=== PATIENT | female | born 2000 | race Hispanic/Latino ===

== ENCOUNTER 2018-01-07 23:09 | Emergency (ER) | payer SELFPAY ==
[2018-01-08] MEDS ORDERED: Sodium Chloride 0.9% 1,000 ML IV STA (00:29)
[2018-01-08 00:39] VITALS: TEMP 97.9; BMI 18.6
--- NOTE | 2018-01-08 00:43 | ED PDOC ---
Arrival/HPI <Jose Sesay - Last Filed: 01/08/18 01:47> - General Historian: Patient, Family - History of Present Illness Time/Duration: 1-3 hours Symptom Onset: Sudden Symptom Course: Unchanged Quality: Other (dizziness) Severity Level: 8 Activities at Onset: Rest Context: Sitting <Giuseppe Velazquez - Last Filed: 01/08/18 04:12> - General Chief Complaint: Dizziness/Lightheaded Time Seen by Provider: 01/07/18 23:42 - History of Present Illness Narrative History of Present Illness (Text): 01/08/18 00:22 CC: Dizziness HPI: Ms. Raymond is a 17 year old female with no past medical history (patient denies) who presents with a 3 hour history of dizziness. Patient was sitting at home in a chair and suddenly felt unsteady and like the room was spinning around her. Patient admits to weakness and says she could not stand at the time , although she can now. Patient reports associated nausea and dry heaves but denies vomiting. Patient also reports being currently on second day of her menstrual period and denies current sexual activity. Patient reports her menstrual periods usually last 4 days and are not particularly heavy. Denies recent travel and sick contacts. PCP: Dr. Dumas (Giuseppe Velazquez) Past Medical History - Provider Review Nursing Documentation Reviewed: Yes - Travel History Have you recently traveled outside [place] w/in the past 3 mons?: No - Past History Past History: No Previous - Psychiatric Hx Psychophysiologic Disorder: No Hx Substance Use: No - Anesthesia Hx Anesthesia: No <Giuseppe Velazquez - Last Filed: 01/08/18 04:12> Family/Social History - Physician Review Nursing Documentation Reviewed: Yes Family/Social History: No Known Family HX Smoking Status: Never Smoked Hx Alcohol Use: No Hx Substance Use: No <Giuseppe Velazquez - Last Filed: 01/08/18 04:12> Allergies/Home Meds <Jose Sesay - Last Filed: 01/08/18 01:47> <Giuseppe Velazquez - Last Filed: 01/08/18 04:12> Allergies/Adverse Reactions: Allergies No Known Allergies Allergy (Verified 01/08/18 00:03) Home Medications: Home Meds Medication Instructions Recorded Confirmed No Known Home Med 01/08/18 01/08/18 Review of Systems - Review of Systems Constitutional: Normal Eyes: absent: Vision Changes ENT: Normal Respiratory: Normal Cardiovascular: Normal. absent: Chest Pain Gastrointestinal: Normal, Nausea. absent: Abdominal Pain, Vomiting Genitourinary Female: Normal Musculoskeletal: Normal Skin: Normal Neurological: Headache, Dizziness <SonujazzGiuseppe cotton - Last Filed: 01/08/18 04:12> Physical Exam Vital Signs Reviewed: Yes Temperature: Afebrile Blood Pressure: Normal Pulse: Regular Respiratory Rate: Normal Appearance: Positive for: Non-Toxic, Uncomfortable Pain Distress: Mild Mental Status: Positive for: Alert and Oriented X 3 - Systems Exam Head: Present: Atraumatic, Normocephalic Pupils: Present: PERRL Extroacular Muscles: Present: EOMI Conjunctiva: Present: Normal Mouth: Present: Moist Mucous Membranes Neck: Present: Normal Range of Motion Respiratory/Chest: Present: Clear to Auscultation, Good Air Exchange. No: Respiratory Distress, Accessory Muscle Use Cardiovascular: Present: Regular Rate and Rhythm, Normal S1, S2. No: Murmurs Abdomen: Present: Tenderness (epigastric), Normal Bowel Sounds. No: Distention , Peritoneal Signs, Rebound, Guarding Upper Extremity: Present: Normal Inspection Lower Extremity: Present: Normal Inspection Neurological: Present: GCS=15, CN II-XII Intact, Speech Normal Skin: Present: Warm, Dry, Normal Color Psychiatric: Present: Alert, Oriented x 3. No: Normal Insight, Normal Concentration <SonujazzGiuseppe cotton - Last Filed: 01/08/18 04:12> Vital Signs Temp Pulse Resp BP Pulse Ox 01/08/18 00:00 97.9 F 75 16 118/63 98 Medical Decision Making <Jose Sesay - Last Filed: 01/08/18 01:47> <Giuseppe Velazquez - Last Filed: 01/08/18 04:12> ED Course and Treatment: 01/08/18 01:47 A 17 year old female presents to the emergency department with a complaint of dizziness. In agreement with resident note, which includes further HPI details. Patient was seen and evaluated with resident, came up with plan and treatment together. (Jose Sesay) 01/08/18 01:00 Impression: 17 F with no past medical history presents with complaints of dizziness. Patient denies oral intake other than clear fluids recently. Plan: CBC CMP UA Lipase NS bolus EKG 01/08/18 02:02 Patient reports poor oral intake and is found eating fast food in hospital bed brought in by family. NSR @80 bpm UA shows large amount of blood, which is congruent with her present menstrual period. Blood work unremarkable. 01/08/18 03:48 Otherwise, patient reports improvement in symptoms and is ready to be discharged. Patient hemodynamically stable. Counseled patient and family regarding proper oral diet and utility of complete meals that are not fast food. Additional vitamins and minerals likely unnecessary. Recommendations are to patient's satisfactions. (Giuseppe Velazquez) - Lab Interpretations Lab Results: 01/08/18 02:11 01/08/18 02:11 Lab Results 01/08/18 02:11: Sodium 140, Potassium 3.7, Chloride 105, Carbon Dioxide 25, Anion Gap 14, BUN 12, Creatinine 0.7, Est GFR ( Amer) > 60, Est GFR (Non- Af Amer) > 60, Random Glucose 92, Calcium 9.7, Total Bilirubin 0.4, AST 25, ALT 20, Alkaline Phosphatase 48, Total Protein 7.7, Albumin 4.6, Globulin 3.1, Albumin/Globulin Ratio 1.5, Lipase 66 01/08/18 02:11: WBC 5.6, RBC 5.49, Hgb 14.6, Hct 43.8, MCV 79.8 L, MCH 26.6, MCHC 33.3, RDW 13.2, Plt Count 212, MPV 10.0, Gran % 41.6 L, Lymph % (Auto) 43.6 H, [place] % (Auto) 7.1 H, Eos % (Auto) 7.3 H, Baso % (Auto) 0.4, Gran # 2.33 , Lymph # (Auto) 2.4, [place] # (Auto) 0.4, Eos # (Auto) 0.4, Baso # (Auto) 0.02 01/08/18 00:45: Urine Color Yellow, Urine Appearance Clear, Urine pH 6.0, Ur Specific [place] 1.020, Urine Protein Negative, Urine Glucose (UA) Negative, Urine Ketones Trace H, Urine Blood Large H, Urine Nitrate Negative, Urine Bilirubin Negative, Urine Urobilinogen 0.2, Ur Leukocyte Esterase Negative, Urine RBC 20 - 25, Urine WBC 1 - 3, Ur Epithelial Cells 6 - 8 - Medication Orders Current Medication Orders: Discontinued Medications Sodium Chloride (Sodium Chloride 0.9%) 1,000 mls @ 999 mls/hr IV .[id number] STA Stop: 01/08/18 01:29 Last Admin: 01/08/18 02:29 Dose: - Scribe Statement The provider has reviewed the documentation as recorded by the Scribe <Jose Sesay - Last Filed: 01/08/18 01:47> <Giuseppe Velazquez - Last Filed: 01/08/18 04:12> - Scribe Statement Saba Robin Provider Scribe Attestation: All medical record entries made by the Scribe were at my direction and personally dictated by me. I have reviewed the chart and agree that the record accurately reflects my personal performance of the history, physical exam, medical decision making, and the department course for this patient. I have also personally directed, reviewed, and agree with the discharge instructions and disposition. (Jose Sesay) Disposition/Present on Arrival <Jose Sesay - Last Filed: 01/08/18 01:47> - Present on Arrival Any Indicators Present on Arrival: No History of DVT/PE: No History of Uncontrolled Diabetes: No Urinary Catheter: No History of Decub. Ulcer: No History Surgical Site Infection Following: None - Disposition Have Diagnosis and Disposition been Completed?: Yes Disposition Time: 03:00 Patient Plan: Discharge <Giuseppe Velazquez - Last Filed: 01/08/18 04:12> - Disposition Diagnosis: Dehydration, Poor appetite Disposition: HOME/ ROUTINE Patient Problems: Current Active Problems Problem Status Onset Dehydration Acute Poor appetite Acute Condition: IMPROVED Discharge Instructions (ExitCare): Dehydration, Adult (DC) Print Language: [place] Additional Instructions: Please follow up with your primary doctor within the week for continuity of care. Please consume full meals of protein with fruits and vegetables. Limit Fast food intake. Should symptoms worsen or reoccur, please return to nearest emergency department. FANTA [facility]AY[facility], thank you for letting us take care of you today. Your provider was Jose Sesay MD and you were treated for DIZZINESS. The emergency medical care you received today was directed at your acute symptoms. If you were prescribed any medication, please fill it and take as directed. It may take several days for your symptoms to resolve. Return to the Emergency Department if your symptoms worsen, do not improve, or if you have any other problems. Please contact your doctor or call one of the physicians/clinics you have been referred to that are listed on the Patient Visit Information form that is included in your discharge packet. Bring any paperwork you were given at discharge with you along with any medications you are taking to your follow up visit. Our treatment cannot replace ongoing medical care by a primary care provider outside of the emergency department. Thank you for allowing the [facility] team to be part of your care today. If you had an X-Ray or CT scan: A Radiologist will review the ED reading if any change in treatment is needed we will contact you. If you had a blood, urine, or wound culture: It will take several days for the results, if any change in treatment is needed we will contact you. If you had an STI test: It will take 48 hours for the results. Please call after 1 week if you have not heard back. Referrals: Ivan Aden MD [Primary Care Provider] - Follow up with primary Forms: [employer] ([place])
[2018-01-08 01:05] LABS: URINE BILIRUBIN NEGATIVE (NEGATIVE); URINE BLOOD LARGE (NEGATIVE); URINE GLUCOSE (UA) NEGATIVE (NEGATIVE); URINE LEUKOCYTE ESTERASE NEGATIVE Leu/uL (NEGATIVE); URINE PROTEIN NEGATIVE mg/dL (<30 mg/dL); URINE UROBILINOGEN 0.2 E.U./dL (<1 E.U./dL)
[2018-01-08 01:06] LABS: URINE APPEARANCE CLEAR (CLEAR); URINE COLOR YELLOW (YELLOW)
[2018-01-08 01:14] LABS: URINE RBC 20 - 25 /hpf (0-2)
[2018-01-08 02:24] LABS: BASO # 0.02 K/mm3 (0.0-2.0); BASO % 0.4 % (0.0-3.0); EOS # 0.4 (0.0-0.7); EOS % 7.3 % (1.5-5.0); GRAN # 2.33 (1.4-6.5); GRAN % 41.6 % (50.0-68.0); HEMOGLOBIN 14.6 g/dL (12.0-16.0); LYMPH # 2.4 (1.2-3.4); LYMPH % 43.6 % (22.0-35.0); MEAN CELL VOLUME 79.8 fl (80.0-105.0); MEAN CORPUSCULAR HEMOGLOBIN 26.6 pg (25.0-35.0); MEAN CORPUSCULAR HGB CONC 33.3 g/dl (31.0-37.0); MONO # 0.4 (0.1-0.6); MONO % 7.1 % (1.0-6.0); RBC 5.49 10^6/uL (3.5-6.1); RED CELL DISTRIBUTION WIDTH 13.2 % (11.5-14.5); WHITE BLOOD COUNT 5.6 10^3/ul (4.5-11.0)
[2018-01-08 03:18] LABS: ALB/GLOB RATIO 1.5 (1.1-1.8); ALBUMIN 4.6 g/dL (3.0-4.8); ALT/SGPT 20 U/L (7-56); AST/SGOT 25 U/L (14-36); BLOOD UREA NITROGEN 12 mg/dL (7-21); CALCIUM 9.7 mg/dL (8.4-10.5); GFR NON-AFRICAN AMERICAN > 60; LIPASE 66 U/L (23-300)
[2018-01-08 05:24] VITALS: BP 121/78; PULSE 80; RESP 18; O2SAT 100
== END 2018-01-08 04:21 | disposition home or self-care (01) ==
LOC: ED 23:09
DX: E86.0 Dehydration (principal); R63.0 Anorexia